=== PATIENT | male | born 1955 | race Two or more races ===

== ENCOUNTER 2024-05-10 10:08 | Emergency (ER) | payer MEDICARE, MEDICAID ==
[~2024-05-10] VITALS: Ht 172.7 cm; Wt 81.6 kg
[2024-05-10 10:42] VITALS: BP 148/80; TEMP 98.5
[2024-05-10] MEDS ORDERED: IBUP-1490 PO (11:58)
[2024-05-10 12:12] VITALS: O2SAT 98
== END 2024-05-10 12:14 | disposition home or self-care (01) ==
LOC: ER 10:24
DX: S93.492A Sprain of other ligament of left ankle, initial encounter (principal); M79.672 Pain in left foot; X50.9XXA Other and unspecified overexertion or strenuous movements or postures, initial encounter; Y93.89 Activity, other specified; Y92.89 Other specified places as the place of occurrence of the external cause; Y99.8 Other external cause status
CPT/HCPCS: 73610-TC; 73630-TC